=== PATIENT | male | born 2000 | race Caucasian/White ===

== ENCOUNTER 2023-11-14 17:36 | Emergency (ER) | payer OTHER ==
[~2023-11-14] VITALS: Ht 188 cm; Wt 84.1 kg
[2023-11-14 17:45] VITALS: TEMP 99.2
[2023-11-14] MEDS ORDERED: Ketorolac 30 MG/ML VIAL IV ONE (18:00)
[2023-11-14] MEDS ORDERED: diphenhydrAMINE 50 MG/ML 1 ML VIAL IV ONE (18:00)
[2023-11-14] MEDS ORDERED: NS 1,000 ML IV ONE (18:00)
[2023-11-14] MEDS ORDERED: Cyclobenzaprine 10 MG TAB PO ONE (18:45)
[2023-11-14 20:09] VITALS: BP 115/62; PULSE 95
== END 2023-11-14 20:17 | disposition home or self-care (01) ==
LOC: COL.ER 17:36
DX: R51.9 Headache, unspecified (principal); Z86.69 Personal history of other diseases of the nervous system and sense organs; Z79.899 Other long term (current) drug therapy
CPT/HCPCS: J0780; J1200; J1885; J7030